=== PATIENT | female | born 1985 | race Caucasian/White ===

== ENCOUNTER 2021-03-14 15:13 | Emergency (ER) | payer OTHER ==
[~2021-03-14] VITALS: Ht 157.5 cm; Wt 51.7 kg
[~2021-03-14 15:13] MED LIST: ALBUTEROL2.5 MG/3 M IH; ANAPROX DS550 MG PO; ASPERDRINK81 MG PO; CITRATE OF MAG296 ML PO; MACROBID 100 M100 M1 PO; MEDROLDOSEPACK PO; MOBIC7.5 M1 PO; NOHOMEMEDICATIONS; NORFLEX100 MG PO; PROMETHAZINE-D120 ML PO; TOBRAMYCIN SULFA5 M1 OP
[2021-03-14] MEDS ORDERED: CEPHALEXIN500 MG PO (16:55)
[2021-03-14 17:04] VITALS: BP 110/68
== END 2021-03-14 17:05 | disposition home or self-care (01) ==
LOC: M.ERS 15:13
DX: H00.011 Hordeolum externum right upper eyelid (principal); Z98.51 Tubal ligation status; Z98.890 Other specified postprocedural states